=== PATIENT | male | born 1985 | race Caucasian/White ===

== ENCOUNTER 2023-03-13 16:00 | Emergency (ER) | payer OTHER, SELFPAY ==
[2023-03-13 16:15] VITALS: BP 141/84; PULSE 73; RESP 16; TEMP 36.6; O2SAT 99
--- NOTE | 2023-03-13 16:31 | ED.UPPEXIN ---
HPI - Extremity Injury (Upper) General Chief Complaint: Extremity Injury, Upper Stated Complaint: right elbow Time Seen by Provider: 03/13/23 16:32 Source: patient Mode of arrival: ambulatory Limitations: no limitations History of Present Illness HPI narrative: 38 yo M presents with bump to R elbow. States he hit R elbow approx. 1 wk ago on door frame. does not have any pain related to injury. States he rubbed elbow after hitting it and noticed the bump. Nonpainful. No change to ROM. still lifting weights at the gym. going out of town and wanted to get it checked out . All systems reviewed and negative except as noted above. Related Data Home Medications Medication Instructions Recorded Confirmed No Home Medications 03/13/23 03/13/23 Allergies Allergy/AdvReac Type Severity Reaction Status Date / Time No Known Allergies Allergy Verified 03/13/23 16:23 Review of Systems Review of Systems: CONSTITUTIONAL: Denies fever, chills, or sweats. EYES: Denies visual changes, redness, or discharge. ENT: Denies rhinorrhea, congestion, sore throat, or otalgia. CARDIOVASCULAR: Denies chest pain, palpitations, or edema. RESPIRATORY: Denies cough or dyspnea. GASTROINTESTINAL: Denies abdominal pain, nausea, vomiting, or diarrhea. GENITOURINARY: Denies dysuria or hematuria. SKIN: Denies rash or itching. Reports bone to right elbow. MUSCULOSKELETAL: Denies back pain, joint pain, or myalgia. NEUROLOGIC: Denies headache, numbness, or weakness. PSYCHIATRIC: Denies anxiety or depression. All other systems reviewed are negative, except as documented in HPI. PMFSH Comments At time of signature, agree with nursing past medical, surgical, social and family history. There is no relevant family history pertinent to the presenting complaint. Exam Narrative: GENERAL: This is a well-nourished, well-developed patient, in no apparent distress. HEAD: normocephalic, atraumatic. EYES: PERRL. Sclera clear/white. Vision is grossly intact. EARS: External ears normal NOSE: External nose normal NECK: Neck supple, non-tender without lymphadenopathy, masses or thyromegaly. CARDIOVASCULAR: Regular rate and rhythm without murmurs, gallops, or rubs. RESPIRATORY: Clear to auscultation. Breath sounds equal bilaterally. No wheezes, rales, or rhonchi. SKIN: warm, Dry, intact with no suspicious lesions or rash, good texture and turgor. very small, approx. 0.5cm, bump to lateral aspect R elbow. most likely a cyst. nontender. no swelling or erythema. NEURO: awake, alert, and oriented to person, place and time. There were no obvious focal neurologic abnormalities. EXTREMITIES: No joint tenderness, effusion, or edema noted. Course Course Level of Care: Express Care Visit Vital Signs Vital signs: Vital Signs Temperature 36.6 C 03/13/23 16:15 Pulse Rate 73 03/13/23 16:15 Respiratory Rate 16 03/13/23 16:15 Blood Pressure 141/84 H 03/13/23 16:15 Pulse Oximetry 99 03/13/23 16:15 Oxygen Delivery Room Air 03/13/23 16:15 Temperature 36.6 C 03/13/23 16:15 Pulse Rate 73 03/13/23 16:15 Respiratory Rate 16 03/13/23 16:15 Blood Pressure 141/84 H 03/13/23 16:15 Pulse Oximetry 99 03/13/23 16:15 Oxygen Delivery Room Air 03/13/23 16:15 Reviewed MDM - Extremity Injury (Upper) MDM Narrative Medical decision making narrative: Patient is aware of diagnosis, understands and agrees to treatment plan. Anticipatory guidance given. Patient agrees to follow-up as directed and is aware of reasons to seek care at the emergency department. Portions of this record may have been created with voice recognition software Discharge Plan Discharge Clinical Impression: Epidermoid cyst of skin Patient Disposition: Home, Self-Care Condition: Stable Instructions: Cyst (ED) Additional Instructions: The bump felt to your right elbow is most likely a cyst. There are no signs of infection. Follow up with your renita
== END 2023-03-13 16:42 | disposition home or self-care (01) ==
PROVIDERS: Emergency Provider Nurse Practitioner Family
DX: L72.9 Follicular cyst of the skin and subcutaneous tissue, unspecified (principal)
CPT/HCPCS: 99211; G0463